=== PATIENT | male | born 1995 | race Caucasian/White ===

== ENCOUNTER 2024-06-06 22:13 | Emergency (ER) | payer OTHER ==
[2024-06-06] MEDS ORDERED: FOLIC ACID 5 MG/ML VIAL ONE (22:41)
[2024-06-06] MEDS ORDERED: MULTIVITAMINS 10 ML VIAL (INJ) IV ONE (22:41)
[2024-06-06] MEDS ORDERED: THIAMINE 200 MG/2 ML INJ ONE (22:41)
[2024-06-06] MEDS ORDERED: NA CHLORIDE 0.9% 2,000 ML ONE (22:42)
[2024-06-06 23:49] LABS: PT Prothrombin Time 11.6 SECONDS (10-13.0); Protime INR 1.02
[2024-06-06 23:50] LABS: Specific Gravity 1.013 (1.005-1.030); Urine Bilirubin NEGATIVE (Negative); Urine Blood Negative (Negative); Urine Clarity Clear (Clear); Urine Color Colorless (Yellow); Urine Glucose NEGATIVE (Negative); Urine Ketones NEGATIVE (Negative); Urine Microscopic Reflex YN NO UMIC; Urine Nitrite NEGATIVE (Negative); Urine Protein NEGATIVE (Negative); Urine Urobilinogen Normal (Normal)
[2024-06-06 23:51] LABS: Absolute Eosinophils 0.1 K/uL (0-0.5); Absolute Lymphocytes (CBC) 2.2 K/uL (0.7-4.9); Absolute Monocytes 0.4 K/uL (0.1-1.3); Absolute Neutrophil 2.6 K/uL (1.8-8.0); Basophils % 0.4 % (0-1.3); Eosinophils % 1.7 % (0-4.4); Hematocrit 34.8 % (39.6-49.0); Lymphocytes % 42.2 % (15.3-44.8); MCH 29.8 pg (27.0-35.0); MCHC 34.5 g/dL (32.0-36.0); MCV 86.5 fL (80-100); MPV 7.8 fL (7.6-11.3); Monocytes % 7.1 % (3.3-12.3); Neutrophils % 48.6 % (41.7-73.7); Nucleated Red Blood Cells % 0.1 % (0-0); Platelets 269 thou/uL (152-406); RBC Red Blood Cell Count 4.02 M/uL (4.33-5.43); Red Cell Distribution Width 12.5 % (12.1-15.2)
[2024-06-06 23:55] LABS: ALT/SGPT 15 U/L (16-61); AST/SGOT 13 U/L (15-37); Albumin 3.5 g/dL (3.4-5.0); Alkaline Phosphatase 64 U/L (45-117); Anion Gap 10.6 mEq/L (5.0-15.0); BUN Blood Urea Nitrogen 13 mg/dL (7-18); Barbiturates NEGATIVE (NEGATIVE); Benzodiazepines NEGATIVE (NEGATIVE); Bicarbonate 25 mEq/L (21-32); Bilirubin Total 0.2 mg/dL (0.2-1.0); Cocaine NEGATIVE (NEGATIVE); Globulin 3.4 g/dL (2.3-3.5); Glomerular Filtration Rate 119 ml/min (=/>90); Glucose Level 135 mg/dL (74-106); METHAMPHETAM NEGATIVE (NEGATIVE); Methadone NEGATIVE (NEGATIVE); Opiates NEGATIVE (NEGATIVE); Phencyclidine NEGATIVE (NEGATIVE); Protein, Total 6.9 g/dL (6.4-8.2); Sodium Level 139 mEq/L (136-145); THC Cannibis NEGATIVE (NEGATIVE)
--- NOTE | 2024-06-07 00:04 | ER ---
Nurse's Notes [facility] Name: Den Chavez Age: 28 yrs Sex: Male : 1995 Arrival Date: 06/06/2024 Time: 22:13 Bed 4 Private MD: Diagnosis: Adverse effect of unspecified drugs, medicaments and biological substances;Adverse effect of other drugs, medicaments and biological substances;Hypokalemia Presentation: 06/06 22:32 Chief complaint: Patient states: took half of the purple kratom at 2000 this evening al5 and went to bed at 2200. patient experienced shaking in his sleep and called the ambulance. patient AAOx4 on scene. Coronavirus screen: At this time, the client does not indicate any symptoms associated with coronavirus-19. Ebola Screen: No symptoms or risks identified at this time. Initial Sepsis Screen: Does the patient meet any 2 criteria? No. Patient's initial sepsis screen is negative. Does the patient have a suspected source of infection? No. Patient's initial sepsis screen is negative. Risk Assessment: Do you want to hurt yourself or someone else? Patient reports no desire to harm self or others. Onset of symptoms was June 06, 2024. Care prior to arrival: Medication(s) given: Normal saline infusion, 300 mL IV initiated. 18 GA, in the left antecubital area. 22:32 Method Of Arrival: EMS: [facility] al5 22:32 Acuity: ADEN 3 al5 Triage Assessment: 22:36 General: Appears in no apparent distress. comfortable, Behavior is calm, cooperative. al5 Pain: Denies pain. EENT: No signs and/or symptoms were reported regarding the EENT system. Neuro: Level of Consciousness is awake, alert, obeys commands, Oriented to person, place, time, situation. Cardiovascular: Capillary refill < 3 seconds Patient's skin is warm and dry. Respiratory: Airway is patent Respiratory effort is even, unlabored, Respiratory pattern is regular, symmetrical. GI: No signs and/or symptoms were reported involving the gastrointestinal system. : No signs and/or symptoms were reported regarding the genitourinary system. Derm: Skin is intact, is healthy with good turgor, Skin is pink, warm \\T\\ dry. normal. Musculoskeletal: No signs and/or symptoms reported regarding the musculoskeletal system. Historical: - Allergies: 22:36 No Known Allergies; al5 - PMHx: 22:36 Anxiety; al5 - PSHx: 22:36 None; al5 - Immunization history:: Adult Immunizations up to date. - Infectious Disease History:: Denies. - Social history:: Smoking status: Reported history of juuling and/or vaping. Patient uses kratom. - Family history:: not pertinent. Screenin:37 [facility] ED Fall Risk Assessment (Adult) History of falling in the last 3 months, al5 including since admission No falls in past 3 months (0 pts) Confusion or Disorientation No (0 pts) Intoxicated or Sedated No (0 pts) Impaired Gait No (0 pts) Mobility Assist Device Used No (0 pt) Altered Elimination No (0 pt) Score/Fall Risk Level 0 - 2 = Low Risk Oriented to surroundings, Maintained a safe environment, Hourly rounding (assess needs \\T\\ fall precautionary measures) done. Abuse screen: Denies threats or abuse. Denies injuries from another. Nutritional screening: No deficits noted. Tuberculosis screening: No symptoms or risk factors identified. Assessment: 22:37 Reassessment: see triage assessment. al5 23:35 Reassessment: Patient appears in no apparent distress at this time. No changes from al5 previously documented assessment. Patient and/or family updated on plan of care and expected duration. Pain level reassessed. Patient is alert, oriented x 3, equal unlabored respirations, skin warm/dry/pink. 06/07 00:27 Reassessment: discharge pending potassium. al5 00:51 Reassessment: Patient appears in no apparent distress at this time. No changes from al5 previously documented assessment. Patient and/or family updated on plan of care and expected duration. Pain level reassessed. Patient is alert, oriented x 3, equal unlabored respirations, skin warm/dry/pink. Patient states feeling better. Patient states symptoms have improved. Overdose: 06/06 22:38 [place] Suicide Severity Screening: "In the past month, have you wished you were al5 or wished you could go to sleep and not wake up?" Patient responds "no." Patient responds "yes." Based off client's responses, additional C-SSRS screening questions required. "In the past month, have you actually had any thoughts of killing yourself?" Patient responds "no." "In your lifetime, have you ever done anything, started to do anything, or prepared to do anything to end your life?" Patient responds "no.". Vital Signs: 22:32 BP 119 / 76; Pulse 104; Resp 18; Temp 98.5; Pulse Ox 99% on R/A; Weight 72.57 kg; al5 Height 5 ft. 10 in. ; 23:00 BP 116 / 78; Pulse 101; Resp 18; Pulse Ox 99% ; al5 23:30 BP 105 / 70; Pulse 94; Resp 18; Pulse Ox 99% ; al5 06/07 00:51 BP 116 / 64; Pulse 90; Resp 16; Pulse Ox 100% ; al5 06/06 22:32 Body Mass Index 22.96 (72.57 kg, 177.8 cm) al5 ED Course: 06/06 22:24 Patient arrived in ED. vc1 22:29 Sharif Escboar MD is Attending Physician. janey 22:29 EKG done, by zyglo technician. af3 22:32 Maria Eugenia Pena RN is Primary Nurse. al5 22:36 Triage completed. al5 22:37 Arm band placed on right wrist. Patient placed in the treatment room, in view of staff al5 members, on helminthology teacher, on pulse oximetry. 22:37 Patient has correct armband on for positive identification. Bed in low position. Call al5 light in reach. Side rails up X2. Provided Education on: plan of care. 22:38 No provider procedures requiring assistance completed. Maintain EMS IV. Dressing al5 intact. Good blood return noted. Site clean \\T\\ dry. Gauge \\T\\ site: 18G LAC. Flushed with 10 mL NS. 23:25 CT Head Brain wo Cont In Process Unspecified. EDMS 23:55 Chest Single View XRAY In Process Unspecified. EDMS 06/07 00:04 Daniel Marie MD is Referral Physician. janey 00:52 IV discontinued, intact, bleeding controlled, No redness/swelling at site. Pressure al5 dressing applied. Administered Medications: 06/06 23:01 Drug: Thiamine IV 100 mg IV at per protocol once Route: IV; Rate: per protocol; Site: al5 left antecubital; 06/07 00:39 Follow up: Response: No adverse reaction; IV Status: Completed infusion; IV Intake: al5 1000ml 06/06 23:01 Drug: NS 0.9% IV 1000 ml IV at 1000 ml once; to be given as a bolus over 60 minutes al5 Route: IV; Rate: 1000 ml; Site: left antecubital; 06/07 00:53 Follow up: Response: No adverse reaction; IV Status: Completed infusion; IV Intake: al5 1000ml 06/06 23:01 Drug: Banana Bag - (Multivitamin IV 1 amp, NS 0.9% IV 1000 ml, Thiamine IV 100 mg, al5 foLIC Acid IVPB 1 mg) IV at 500 ml/hr once Route: IV; Rate: 500 ml/hr; Site: left antecubital; 06/07 00:40 Follow up: Response: No adverse reaction; IV Status: Completed infusion; IV Intake: al5 1000ml 00:27 Drug: Potassium PO Effervescent Tablet 50 mEq PO once; dissolve in 4 ounces of water or al5 juice Route: PO; 00:39 Follow up: Response: No adverse reaction al5 00:39 Drug: Potassium PO Effervescent Tablet 50 mEq PO once; dissolve in 4 ounces of water or al5 juice just before dc Route: PO; 00:53 Follow up: Response: No adverse reaction al5 Medication: 06/06 22:37 VIS not applicable for this client. al5 Intake: 06/07 00:39 IV: 1000ml; Total: 1000ml. al5 00:40 IV: 1000ml; Total: 2000ml. al5 00:53 IV: 1000ml; Total: 3000ml. al5 Outcome: 00:04 Discharge ordered by MD. toth 00:52 Discharged to home ambulatory, with significant other, al5 00:52 Condition: good 00:52 Discharge instructions given to patient, Instructed on discharge instructions, follow up and referral plans. Demonstrated understanding of instructions, follow-up care, 00:52 Patient left the ED. al5 Signatures: Dispatcher [employer] EDSharif Simon MD MD cha Calcote, Vanessa RN RN vc1 Maria Eugenia Pena RN RN al5 Ines Ulloa
--- NOTE | 2024-06-07 00:04 | EDPHYS ---
Physician Documentation [facility] Name: Den Chavez Age: 28 yrs Sex: Male : 1995 Arrival Date: 06/06/2024 Time: 22:13 Bed 4 Private MD: ED Physician Sharif Escobar HPI: 06/06 23:26 This 28 yrs old Male presents to ER via EMS with complaints of Overdose. janey 23:26 The patient presents to the emergency department with a possible overdose. Context: janey Method: the patient has a confirmed or suspected ingestion, unk. Associated signs and symptoms: Pertinent positives: anxiety, decreased level of consciousness. Historical: - Allergies: 22:36 No Known Allergies; al5 - PMHx: 22:36 Anxiety; al5 - PSHx: 22:36 None; al5 - Immunization history:: Adult Immunizations up to date. - Infectious Disease History:: Denies. - Social history:: Smoking status: Reported history of juuling and/or vaping. Patient uses kratom. - Family history:: not pertinent. ROS: 23:26 Constitutional: Negative for fever, chills, and weight loss, Eyes: Negative for injury, janey pain, redness, and discharge, ENT: Negative for injury, pain, and discharge, Neck: Negative for injury, pain, and swelling, Cardiovascular: Negative for chest pain, palpitations, and edema, Respiratory: Negative for shortness of breath, cough, wheezing, and pleuritic chest pain, Abdomen/GI: Negative for abdominal pain, nausea, vomiting, diarrhea, and constipation, Back: Negative for injury and pain, : Negative for injury, bleeding, discharge, and swelling, MS/Extremity: Negative for injury and deformity, Skin: Negative for injury, rash, and discoloration, Neuro: Negative for headache, weakness, numbness, tingling, and seizure, Psych: Negative for depression, anxiety, suicide ideation, homicidal ideation, and hallucinations, Allergy/Immunology: Negative for hives, rash, and allergies, Endocrine: Negative for neck swelling, polydipsia, polyuria, polyphagia, and marked weight changes, Hematologic/Lymphatic: Negative for swollen nodes, abnormal bleeding, and unusual bruising, Exam: 23:26 Constitutional: This is a well developed, well nourished patient who is awake, alert, janey and in no acute distress. Head/Face: Normocephalic, atraumatic. Eyes: Pupils equal round and reactive to light, extra-ocular motions intact. Lids and lashes normal. Conjunctiva and sclera are non-icteric and not injected. Cornea within normal limits. Periorbital areas with no swelling, redness, or edema. ENT: Nares patent. No nasal discharge, no septal abnormalities noted. Tympanic membranes are normal and external auditory canals are clear. Oropharynx with no redness, swelling, or masses, exudates, or evidence of obstruction, uvula midline. Mucous membranes moist. Neck: Trachea midline, no thyromegaly or masses palpated, and no cervical lymphadenopathy. Supple, full range of motion without nuchal rigidity, or vertebral point tenderness. No Meningismus. Chest/axilla: Normal chest wall appearance and motion. Nontender with no deformity. No lesions are appreciated. Cardiovascular: Regular rate and rhythm with a normal S1 and S2. No gallops, murmurs, or rubs. Normal PMI, no JVD. No pulse deficits. Respiratory: Lungs have equal breath sounds bilaterally, clear to auscultation and percussion. No rales, rhonchi or wheezes noted. No increased work of breathing, no retractions or nasal flaring. Abdomen/GI: Soft, non-tender, with normal bowel sounds. No distension or tympany. No guarding or rebound. No evidence of tenderness throughout. Back: No spinal tenderness. No costovertebral tenderness. Full range of motion. Male : Normal genitalia with no discharge or lesions. Skin: Warm, dry with normal turgor. Normal color with no rashes, no lesions, and no evidence of cellulitis. MS/ Extremity: Pulses equal, no cyanosis. Neurovascular intact. Full, normal range of motion., bilateral aka Neuro: Awake and alert, GCS 15, oriented to person, place, time, and situation. Cranial nerves II-XII grossly intact. Motor strength 5/5 in all extremities. Sensory grossly intact. Cerebellar exam normal. Normal gait. Psych: Awake, alert, with orientation to person, place and time. Behavior, mood, and affect are within normal limits. 23:26 ECG was reviewed by the Attending Physician. 23:26 Musculoskeletal/extremity: ROM: no acute changes, intact in all extremities, full active range of motion, full passive range of motion, Circulation is intact in all extremities. Sensation intact. Compartment Syndrome exam of affected extremity: is normal. no pain, no numbness, no tingling, no sensation deficit, no palor, no weak pulses, Weight bearing: able to fully bear weight, Tendon exam: unable to examine DVT Exam: No signs of deep vein thrombosis. no pain, no swelling, no tenderness, negative Homans' sign noted on exam, no appreciated bluish discoloration, no erythema, no increased warmth, Vital Signs: 22:32 BP 119 / 76; Pulse 104; Resp 18; Temp 98.5; Pulse Ox 99% on R/A; Weight 72.57 kg; al5 Height 5 ft. 10 in. ; 23:00 BP 116 / 78; Pulse 101; Resp 18; Pulse Ox 99% ; al5 23:30 BP 105 / 70; Pulse 94; Resp 18; Pulse Ox 99% ; va5 06/07 00:51 BP 116 / 64; Pulse 90; Resp 16; Pulse Ox 100% ; va5 06/06 22:32 Body Mass Index 22.96 (72.57 kg, 177.8 cm) al5 MDM: 06/06 22:29 Medical Screening Exam initiated janey 23:31 Differential diagnosis: Ingestion/exposure to [place] polypharmacy, over medication, janey hypoglycemia, closed head injury, intracranial hemorrhage. Data reviewed: vital signs, nurses notes, lab test result(s), EKG, radiologic studies, CT scan, plain films. Consideration of Admission/Observation Escalation of care including admission/observation considered. I considered the following discharge prescriptions or medication management in the emergency department Medications were administered in the Emergency Department. See MAR. Independent interpretation of the following test(s) in the Emergency Department EKG: See my EKG interpretation above. Test considered but Not performed: MRI: no mri brain. Historians other than the Patient: EMS: ems well informed. Care significantly affected by the following chronic conditions: anxiety. 06/06 21: Order name: Acetaminophen; Complete Time: 00:12 janey 06/06 21:31 Order name: Basic Metabolic Panel; Complete Time: 00:12 janey 06/06 21:31 Order name: CBC with Diff; Complete Time: 00:04 janey 06/06 21:31 Order name: ETOH Level; Complete Time: 00:04 janey 04/15 22:31 Order name: Hepatic Function; Complete Time: 00:12 [facility] 06/06 22:31 Order name: PT-INR; Complete Time: 00:04 [facility] 06/06 22:31 Order name: Ptt, Activated; Complete Time: 00:04 [facility] 06/06 22:31 Order name: Salicylate 06/06 22:31 Order name: Urinalysis w/ reflexes; Complete Time: 00:04 [facility] 06/06 22:31 Order name: Urine Drug Screen; Complete Time: 00:04 [facility] 06/06 22:31 Order name: Chest Single View XRAY 06/06 22:31 Order name: CT Head Brain wo Cont 06/06 22:31 Order name: EKG; Complete Time: 22:32 [facility] 06/06 22:31 Order name: EKG - Nurse/Tech; Complete Time: 22:38 [facility] 06/06 22:31 Order name: IV Saline Lock; Complete Time: 22:38 [facility] 06/06 22:31 Order name: Labs collected and sent; Complete Time: 22:38 [facility] 06/06 22:31 Order name: Suicide Screening ([place]); Complete Time: 22:38 [facility] 06/06 23:46 Order name: PO challenge; Complete Time: 23:55 [facility] 06/07 00:12 Order name: Misc. Order: juice; Complete Time: 00:27 janey EC:26 Rate is 106 beats/min. Rhythm is regular. QRS [place] is Normal. OR interval is normal. janey QRS interval is normal. QT interval is normal. No Q waves. T waves are Normal. No ST changes noted. Clinical impression: NSR w/ Non-specific ST/T Changes and No evidence of ischemia. Interpreted by me. Reviewed by me. Administered Medications: 23:01 Drug: Thiamine IV 100 mg IV at per protocol once Route: IV; Rate: per protocol; Site: al5 left antecubital; 06/07 00:39 Follow up: Response: No adverse reaction; IV Status: Completed infusion; IV Intake: al5 1000ml 06/06 23:01 Drug: NS 0.9% IV 1000 ml IV at 1000 ml once; to be given as a bolus over 60 minutes al5 Route: IV; Rate: 1000 ml; Site: left antecubital; 06/07 00:53 Follow up: Response: No adverse reaction; IV Status: Completed infusion; IV Intake: al5 1000ml 06/06 23:01 Drug: Banana Bag - (Multivitamin IV 1 amp, NS 0.9% IV 1000 ml, Thiamine IV 100 mg, al5 foLIC Acid IVPB 1 mg) IV at 500 ml/hr once Route: IV; Rate: 500 ml/hr; Site: left antecubital; 06/07 00:40 Follow up: Response: No adverse reaction; IV Status: Completed infusion; IV Intake: al5 1000ml 00:27 Drug: Potassium PO Effervescent Tablet 50 mEq PO once; dissolve in 4 ounces of water or al5 juice Route: PO; 00:39 Follow up: Response: No adverse reaction al5 00:39 Drug: Potassium PO Effervescent Tablet 50 mEq PO once; dissolve in 4 ounces of water or al5 juice just before dc Route: PO; 00:53 Follow up: Response: No adverse reaction al5 Disposition Summary: 06/07/24 00:04 Discharge Ordered Notes: Location: Home janey Problem: new janey Symptoms: have improved janey Condition: Stable janey Diagnosis - Adverse effect of unspecified drugs, medicaments and biological substances janey - Adverse effect of other drugs, medicaments and biological substances janey - Hypokalemia janey Followup: janey - With: Private Physician - When: 2 - 3 days - Reason: Recheck today's complaints, Continuance of care, Re-evaluation by your physician Followup: janey - With: Daniel Marie MD - When: 2 - 3 days - Reason: Recheck today's complaints, Re-evaluation by your physician Discharge Instructions: - Discharge Summary Sheet janey - Potassium Content of Foods janey - Substance Use Disorder janey - Hypokalemia janey - Substance Use Disorder and Mental Illness janey - Supporting Someone With Substance Use Disorder janey - Preventing [id number]-Iybfhbz Drug Misuse janey Forms: - Medication Reconciliation Form janey - Antibiotic Education janey - Prescription Opioid Use janey - Patient Portal Instructions janey - Leadership Thank You Letter janey Signatures: Dispatcher [employer] Sharif Elena MD MD cha Langhorst, Amanda RN RN al5
[2024-06-07 00:06] LABS: Bilirubin Direct < 0.2 mg/dL (0-0.2)
[2024-06-07 00:07] LABS: Potassium 2.6 mEq/L (3.5-5.1)
[2024-06-07] MEDS ORDERED: POTASSIUM 25 MEQ EFFERV TAB ONE (00:24)
[2024-06-07 01:49] VITALS: TEMP 98.5
[2024-06-07 01:54] VITALS: BP 116/64; O2SAT 100
--- NOTE | 2024-06-07 02:03 | RAD REPORT ---
EXAM: CT Head/Brain Without Contrast HISTORY: Confusion COMPARISON: None TECHNIQUE: Head/brain axial images acquired without contrast. Coronal and sagittal reformats created. Exam performed according to departmental dose-optimization program which includes automated exposure control, adjustment of mA and/or kV according to patient size, and/or use of iterative recon struction technique. FINDINGS: No midline shift, mass effect, intracranial hemorrhage, or hydrocephalus. Brain parenchyma unremarkable. Right lateral ventricle is moderately larger than left (likely normal variant). Mild right posterior ethmoid sinus opacification. Mastoid air cells clear. No skull fracture or significant skull lesion. IMPRESSION: Unremarkable CT head/brain without contrast. Electronically signed by: Zain Arora MD 06/07/2024 01:51 AM CDT RP Due to temporary technical issues with the PACS/[facility] reporting system, reports are being jairon d by the in-house radiologist without review as a courtesy to ensure prompt reporting the interpreting radiologist is fully responsible for the content of the report. Transcribed Date/Time: 06/07/2024 2:02 AM
--- NOTE | 2024-06-07 05:50 | RAD REPORT ---
EXAM: XR Chest 1 View AP HISTORY: Cough COMPARISON: None TECHNIQUE: Chest 1 View AP FINDINGS: Trachea midline. Heart size and pulmonary vessels within normal limits. Lungs clear without evidence of consolidation, mass, or significant pulmonary edema. No significant pleural effusion or pneumothorax. Bones unremarkable. IMPRESSION: Normal chest radiograph. Electronically signed by: Zain Arora MD 06/07/2024 01:46 AM CDT RP Due to temporary technical issues with the PACS/[employer] reporting system, reports are being jairon d by the in-house radiologist without review as a courtesy to ensure prompt reporting the interpreting radiologist is fully responsible for the content of the report. Transcribed Date/Time: 06/07/2024 5:50 AM
== END 2024-06-07 00:52 | disposition home or self-care (01) ==
LOC: ER 22:13
DX: T50.995A Adverse effect of other drugs, medicaments and biological substances, initial encounter (principal); E87.6 Hypokalemia; F41.9 Anxiety disorder, unspecified
CPT/HCPCS: 93005; 85025; 80048; 36415; 85610; 80076; 85730; 81003; 80307; 70450; 71045; 80143; 80179; 82077; J3411; J7030